=== PATIENT | male | born 1970 | race Caucasian/White ===

== ENCOUNTER → 2018-07-24 10:23 | Outpatient (REF) | payer OTHER, SELFPAY ==
[2018-07-24 14:14] LABS: Basophils # 0.1 K/mm3 (0-0.2); Basophils % 0.9 % (0.1-2.0); Eosinophils # 0.2 K/mm3 (0.0-0.4); Eosinophils % 2.2 % (0.1-12.0); Hematocrit 46.8 % (42.0-52.0); Hemoglobin 15.1 g/dL (14.1-18.0); Lymphocytes # 2.7 K/mm3 (0.7-4.5); Lymphocytes % 31.8 K/mm3 (10-50); Mean Corpuscular HGB Conc 32.3 g/dL (31.8-35.4); Mean Corpuscular Hemoglobin 28.5 pg (27.0-31.2); Mean Corpuscular Volume 88.3 fl (80-94); Mean Platelet Volume 7.2 fl (7.4-10.4); Monocytes # 0.7 K/mm3 (0.1-1.0); Monocytes % 8.6 % (1.7-9.3); Neutrophils # 4.8 K/mm3 (1.8-7.8); Neutrophils % 56.5 % (37.0-80.0); Platelet Count 307 K/mm3 (142-424); Red Cell Distribution Width 13.7 % (11.5-17.5); White Blood Count 8.5 K/mm3 (4.8-10.8)
[2018-07-24 15:31] LABS: Alanine Aminotransferase 25 U/L (12-78); Albumin Level 3.9 gm/dL (3.4-5.0); Albumin/Globulin Ratio 1.3 (1.1-1.8); Alkaline Phosphatase 62 U/L (46-116); Anion Gap 9.8 mEq/L (5-15); Aspartate Amino Transferase 15 U/L (15-37); Bilirubin,Total 0.3 mg/dL (0.2-1.0); Blood Urea Nitrogen 13 mg/dL (7-18); Calcium 9.1 mg/dL (8.5-10.1); Carbon Dioxide 29 mmol/L (21.0-32.0); Chloride 105 mmol/L (98-107); Chol/HDL Ratio 3.5 (1-3.5); Cholesterol 164 mg/dL (140-200); Creatinine,Serum 1.05 mg/dL (0.70-1.30); Estimated Glomerular Filt Rate 76 ml/min (>60); GFR (African American) 92 ML/MIN (>60); Globulin 3.1 gm/dl (1.3-3.2); Glucose 100 mg/dL (74-106); HDL Cholesterol 47 mg/dL (27-67); LDL Cholesterol 102 mg/dL (0-130); Potassium 4.8 mmoL/L (3.5-5.1); Sodium 139 mmol/L (136-145); T4 (Thyroxine) 10.1 ug/dl (4.7-13.3); Thyroid Stimulating Hormone 1.36 uIU/ml (0.358-3.740); Triglycerides 77 mg/dL (30-200); VLDL Cholesterol 15 mg/dL (0-40)
[2018-07-25 10:24] LABS: PSA, Free 0.27 ng/mL; Prostate Specific Ag 1.8 ng/mL (0.0-4.0); Vitamin D 25 Hydroxy 28.3 ng/mL (30.0-100.0)
== END ==
LOC: LAB 10:23
PROVIDERS: Visit Provider Nurse Practitioner Family
DX: F17.200 Nicotine dependence, unspecified, uncomplicated (principal); Z76.89 Persons encountering health services in other specified circumstances; R53.83 Other fatigue
CPT/HCPCS: 80053; 80061; 82652; 84153; 84154; 84436; 84443; 85025

== ENCOUNTER 2020-08-09 11:13 | Emergency (ER) | payer BC, SELFPAY ==
[2020-08-09 11:25] VITALS: BP 130/82; PULSE 67; RESP 19; TEMP 36.6; O2SAT 98; BMI 23.0
--- NOTE | 2020-08-09 11:46 | HMH.EDUTC ---
[facility] [place] Disposition Clinical Impression: Insect bite Qualifiers: Encounter type: initial encounter Site of insect bite: finger Finger: index finger Laterality: left Qualified Code(s): S60.461A - Insect bite (nonvenomous) of left index finger, initial encounter; W57.XXXA - Bitten or stung by nonvenomous insect and other nonvenomous arthropods, initial encounter Disposition: Home, Self-Care Condition on Discharge: Good Instructions: How to Care for an Insect Bite or Sting, DI for Incision and Drainage of a Skin Abscess Additional Instructions: take both antibiotics as ordered if area worsens return elio follow up with surgery call monday for yaquelin keep area clean and dry call in 2 days for wound cx results Prescriptions: Sulfamethoxazole/Trimethoprim [Bactrim DS tablet] 1 each PO BID 10 Days #20 tab Prescription Printed cephALEXin [Keflex 500mg Cap] 500 mg PO BID 10 Days #20 cap Prescription Printed Referrals: Mateus Bergman MD [Primary Care Provider] - Time of Disposition: 11:55 Medical Decision Making - Anupam Inquiry Pt receiving controlled substance: No Vital Signs: 08/09/20 11:25 Temperature 97.8 F Temperature Source Oral Pulse Rate [Radial] 67 Respiratory Rate 19 Blood Pressure [Right Arm] 130/82 Blood Pressure Mean [Right Arm] 98 Blood Pressure Source [Right Arm] Automatic Cuff Blood Pressure Position [Right Arm] Sitting 02 Sat by Pulse Oximetry 98 Oxygen Delivery Method Room Air [facility] [place] HPI - General Chief complaint: Urgent Treatment Center Stated complaint: possible spider bite Time Seen by Provider: 08/09/20 11:40 Mode of Arrival: Ambulatory Source of Information: Patient Limitations: No Limitations Description of Symptoms (Recalled from Triage Doc. by RN): Bite on left index finger x 3 days now. HEENT Symptoms (Recalled from RN notes): No Resp Symptoms (Recalled from RN notes): No Skin Symptoms (Recalled from RN notes): Yes MS Symptoms (Recalled from RN notes): No Functional Status (Recalled from RN notes): wnl - History of Present Illness Provider Complaint: 49 yr old male presents for a poss spider bite to left index finger. pt states he noticed it 5 days ago and the area continues to be red and swollen and the bite has drainage. Pt states he did not see anything bite him he just woke up with it on his finger. - Related Data Previous Rx's Medication Instructions Recorded varenicline 0.5 mg (11)-1 mg (42) See Rx Instructions PO PER PKG DIR 07/24/18 tablets in a dose pack #53 tab ergocalciferol (vitamin D2) 1,250 50,000 unit PO QWEEK #4 cap 07/25/18 mcg (50,000 unit) capsule Sulfamethoxazole/Trimethoprim 1 each PO BID 10 Days #20 tab 08/09/20 [Bactrim DS tablet] cephALEXin [Keflex 500mg Cap] 500 mg PO BID 10 Days #20 cap 08/09/20 Allergies Allergy/AdvReac Type Severity Reaction Status Date / Time hydrocodone [HYDROCODONE] Allergy Unknown Unverified 07/24/18 10:10 Penicillins [PENICILLINS] Allergy Unknown Unverified 07/24/18 10:10 - Worker's Comp Is this a Worker's Comp case?: No [facility] History - Hepatitis A Screen Drug use history?: No High risk sexual behaviors?: No History of sexually transmitted infection?: No Currently employed?: No Childcare worker?: No Do you have indoor plumbing?: Yes Do you have electricity?: Yes Attestation statement:: This patient has been screened for Hepatitis A risk factors. I have reviewed the patient's past medical history: Yes Other Surgeries: Yes: Other Amputation: No Fractures: No Comment: Cyst removed off tailbone - Social History Smoking Status: Current every day smoker Tobacco Type: cigarettes # Packs/Day (cigarettes): 1 Alcohol Intake: never Substance Use Type: marijuana Occupational Status: employed Family Hx:: Diabetes ROS Obtained: Yes Systems reviewed as appropriate & no additional complaints - Constitutional Constitutional: Reports system reviewed and no additional complaints, except as docu, Denies fa
[2020-08-09 12:10] VITALS: BP 130/82; PULSE 67; RESP 19; TEMP 36.6; O2SAT 98
== END 2020-08-09 12:11 | disposition home or self-care (01) ==
PROVIDERS: Emergency Provider Nurse Practitioner Family; PCP Emergency Medicine
DX: S60.461A Insect bite (nonvenomous) of left index finger, initial encounter (principal); W57.XXXA Bitten or stung by nonvenomous insect and other nonvenomous arthropods, initial encounter; F12.10 Cannabis abuse, uncomplicated; F17.210 Nicotine dependence, cigarettes, uncomplicated; Z88.0 Allergy status to penicillin; Z88.5 Allergy status to narcotic agent
CPT/HCPCS: 10060; 87070; 87077; 87186; 87205; 99201

== ENCOUNTER 2020-12-29 19:00 | Emergency (ER) | payer OTHER, BC, SELFPAY ==
[2020-12-29 19:00] VITALS: BP 172/84; PULSE 57; RESP 16; TEMP 37; O2SAT 98
[2020-12-29 19:07] VITALS: BMI 23.7
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
--- NOTE | 2020-12-29 19:37 | PC.NURSE ---
Pt to CT at this time
--- NOTE | 2020-12-29 19:59 | PC.NURSE ---
Back from CT
[2020-12-29 22:15] VITALS: BP 140/86; PULSE 60; RESP 16; TEMP 37; O2SAT 98
== END 2020-12-29 22:17 | disposition home or self-care (01) ==
LOC: ER 20:02 → 2ND 21:59 → ER 22:01
PROVIDERS: Emergency Provider Family Medicine; PCP Emergency Medicine
DX: S22.22XA Fracture of body of sternum, initial encounter for closed fracture (principal); S16.1XXA Strain of muscle, fascia and tendon at neck level, initial encounter; V89.2XXA Person injured in unspecified motor-vehicle accident, traffic, initial encounter; Y92.488 Other paved roadways as the place of occurrence of the external cause; F17.210 Nicotine dependence, cigarettes, uncomplicated
CPT/HCPCS: 70450; 71045; 71250; 72125; 72170; 74176; 99281

== ENCOUNTER 2022-09-24 20:57 | Emergency (ER) | payer BC, SELFPAY ==
[2022-09-24 20:58] VITALS: BP 117/67; PULSE 76; RESP 18; TEMP 37; O2SAT 95; BMI 27.5
[2022-09-24 21:30] VITALS: BP 105/70; PULSE 74; O2SAT 93
--- NOTE | 2022-09-24 21:56 | HMH.EDWNDL ---
Discharge Plan Disposition Patient Disposition: Home, Self-Care Condition: Good Prescriptions Prescriptions: New doxycycline hyclate 100 mg capsule 100 mg PO BID 14 Days Qty: 28 0RF Referrals Follow up/Referrals: Mateus Bergman MD [Primary Care Provider] - See instructions Activity Restrictions/Add. Instructions Additional Instructions/Restrictions: Please take the antibiotics as prescribed. Additionally, you can apply [id number] antibiotic ointment over top the sutures. Please monitor for signs of infection daily and you can wash with soap and water normally. If you develop redness to the area, increasing pain, fevers, pus to the area, please be reevaluated. The sutures will need to be removed. Please follow-up with your regular doctor in a couple days time for wound recheck and possible suture removal. Clinical Impressions Clinical Impression: Dog bite of finger, Laceration of finger Instructions Patient Instructions: DI for Laceration Repair Discharge ED Provider: Rosalba Padgett Wound/Laceration HPI General Chief Complaint: Wound/Laceration Stated Complaint: AO 09/21@2030 bit by dog R Hand Time Seen by Provider: 09/24/22 21:15 Mode of Arrival: Ambulatory Source of Information: Patient Limitations: No Limitations Description of Symptoms (Recalled from ER Triage Doc. by RN): pt states that 30 minutes ago he was attempting to break up a dog fight between his two dogs when he was bitten on his right ring finger. Presents with laceration History of Present Illness HPI narrative: 51 year old male with no sigifnicant PMH who presents with laceration to his right fourth finger sustained from dog bite 30 minutes prior to arrival. Patient states he was attempting to break up a dog fight between his two dogs and accidentally pulled on one of their tails and then got bit on his right hand. He states only his hand was bite and sustained no other injuries. No numbness or tingling of the hand. Patient's dogs are immunizated. He is unsure his last tetanus. Patient has an allergy to penicillin. Related Data Previous Rx's Medication Instructions Recorded doxycycline hyclate 100 mg capsule 100 mg PO BID 14 days #28 caps 09/24/22 Allergies Allergy/AdvReac Type Severity Reaction Status Date / Time Penicillins [PENICILLINS] Allergy Unknown Verified 09/24/22 21:33 [facility] Medical History (Updated 09/24/22 @ 23:16 by Rosalba Padgett MD) Pilonidal cyst Social History Smoking Status: Former smoker second hand exposure: Yes alcohol intake: former substance use type: former substance user, marijuana and crack/cocaine current occupational status: employed Travel in the last 8 weeks: None ROS Obtained: Yes Systems reviewed as appropriate & no additional complaints except as documented Physical Exam General General appearance: alert and in no apparent distress Head Head exam: atraumatic, normocephalic and normal inspection Eye Eye exam: Present normal appearance, PERRL and EOMI ENT ENT exam: Present normal exam, normal oropharynx and normal external ear exam Neck Neck exam: Present normal inspection, full ROM and trachea midline Chest Chest inspection: Present normal inspection and symmetric chest wall rise Respiratory Respiratory exam: Present normal lung sounds bilaterally; Absent respiratory distress Cardiovascular Cardiovascular exam: Present normal heart sounds Abdominal Exam Abdominal exam: Present soft; Absent tenderness Extremities Exam Extremities exam: Present normal inspection, full ROM and normal capillary refill Expanded Upper Extremity Exam Right: Hand L/R back image: 1. approximately 1.5 cm superficial laceration to the lateral aspect of his right fourth finger, hemostatic, good distal capillary refill, able to wiggle all fingers Back Exam Back exam: Present normal inspection Neurological Exam Neurological exam: Present alert and oriented X3 Psychiat
--- NOTE | 2022-09-24 21:59 | XR_ITS ---
PROCEDURE INFORMATION: Exam: XR Right Hand Exam date and time: 09/24/2022 9:59 PM Age: 51 years old Clinical indication: Injury or trauma; Right; Injury date: ; Injury details: Dog bite top oh RT hand TECHNIQUE: Imaging protocol: Radiologic exam of the Right hand. Views: 3 or more views. COMPARISON: No relevant prior studies available. FINDINGS: Bones/joints: Grid limits bone and soft tissue detail mildly. No fractures. Carpal relationships are normal. Distal radioulnar alignment is normal. No blastic or lytic lesions. No articular erosive changes. Soft tissues: No periostitis or osteolysis. Soft tissue laceration at the medial base of the 4th finger with local soft tissue air. No radiopaque foreign bodies. IMPRESSION: 1. No osseous injuries. 2. Soft tissue laceration at the medial base of the 4th finger with local soft tissue air but no gross foreign bodies. No changes of osteomyelitis or septic joint.
[2022-09-24 22:00] VITALS: BP 115/79; PULSE 63; O2SAT 93
[2022-09-24 23:20] VITALS: BP 115/79; PULSE 65; RESP 18; TEMP 36.6; O2SAT 98
== END 2022-09-24 23:33 | disposition home or self-care (01) ==
PROVIDERS: Emergency Provider Student in an Organized Health Care Education/Training Program; PCP Emergency Medicine
DX: S61.214A Laceration without foreign body of right ring finger without damage to nail, initial encounter (principal); W54.0XXA Bitten by dog, initial encounter; Z88.0 Allergy status to penicillin
CPT/HCPCS: 12001; 73130; 90471; 90714; 99283